=== PATIENT | female | born 1965 | race Caucasian/White ===

== ENCOUNTER 2016-11-21 13:05 | Inpatient (IN) | payer OTHER ==
[2016-11-21] MEDS ORDERED: ONDANSETRON 4 MG TAB.RAPDIS PO ONE (13:45)
[2016-11-21] MEDS ORDERED: NORMAL SALINE 1000 ML 1,000 ML IV ONE (13:45)
--- NOTE | 2016-11-21 13:46 | ER Document Report ---
ED Medical Screen (RME) - General Chief Complaint: Abdominal Pain Stated Complaint: ABDOMINAL PAIN Time Seen by Provider: 11/21/16 13:19 Notes: 51-year-old female with one-week history of right lower quadrant abdominal pain , no appetite with nausea when she tries to eat. There is been a fever since last night. Last bowel movement 1 week ago. I have greeted and performed a rapid initial assessment of this patient. A comprehensive ED assessment and evaluation of the patient, analysis of test results and completion of the medical decision making process will be conducted by additional ED providers. TRAVEL OUTSIDE OF THE [place] IN LAST 30 DAYS: No - Related Data Allergies/Adverse Reactions: acetaminophen [From Darvocet-N 100] Allergy (Verified 11/21/16 13:26) propoxyphene napsylate [From Darvocet-N 100] Allergy (Verified 11/21/16 13:26) ciprofloxacin [From Cipro] Adverse Reaction (Verified 11/21/16 13:38) VOMITING Home Medications: Current Home Medications Glimepiride [Amaryl 4 mg Tablet] 4 mg PO DAILY 11/21/16 [History] Levothyroxine Sodium [Levoxyl] 88 mcg PO DAILY 11/21/16 [History] Rosuvastatin Calcium [Crestor 5 mg Tablet] 5 mg PO DAILY 11/21/16 [History] Sertraline HCl 25 mg PO DAILY 11/21/16 [History] Sitagliptin Phosphate [Januvia] 50 mg PO DAILY 11/21/16 [History] Thyroid 90 mg PO DAILY 11/21/16 [History] Valsartan/Hydrochlorothiazide [Valsartan-Hctz 160-25 mg Tab] 160.25 mg PO DAILY 11/21/16 [History] Past Medical History - Past Medical History Cardiac Medical History: Reports: Hx Hypertension Renal/ Medical History: Denies: Hx Peritoneal Dialysis Physical Exam - Vital signs Vitals: Temp Pulse Resp BP Pulse Ox 100.8 F H 103 H 18 171/89 H 95 11/21/16 13:20 11/21/16 13:20 11/21/16 13:20 11/21/16 13:20 11/21/16 13:20 Course - Vital Signs Vital signs: Temp Pulse Resp BP Pulse Ox 100.8 F H 103 H 18 171/89 H 95 11/21/16 13:20 11/21/16 13:20 11/21/16 13:20 11/21/16 13:20 11/21/16 13:20
[2016-11-21 14:18] LABS: ABSOLUTE EOSINOPHILS # (AUTO) 0.1 10^3/uL (0.0-0.6); ABSOLUTE LYMPHOCYTES (AUTO) 0.9 10^3/uL (0.5-4.7); ABSOLUTE MONOCYTES (AUTO) 0.5 10^3/uL (0.1-1.4); ABSOLUTE NEUT (AUTO) 6.4 10^3/uL (1.7-8.2); BASOPHILS % (AUTO) 0.3 % (0-2); EOSINOPHILS % (AUTO) 1.2 % (0-6); HEMATOCRIT 37.7 % (36.0-47.0); HEMOGLOBIN 12.5 g/dL (12.0-15.5); HGB HCT DIFFERENCE -0.2; LYMPHOCYTES % (AUTO) 11.2 % (13-45); MEAN CORPUSCULAR HGB CONC 33.2 g/dL (32.0-36.0); MEAN CORPUSCULAR VOLUME 78 fl (80-97); MONOCYTES % (AUTO) 6.6 % (3-13); RED BLOOD COUNT 4.81 10^6/uL (3.72-5.28); RED CELL DISTRIBUTION WIDTH 16.7 % (11.5-14.0); SEGMENTED NEUTROPHILS % (AUTO) 80.7 % (42-78)
[2016-11-21 14:50] LABS: ALANINE AMINOTRANSFERASE 36 U/L (9-52); ALBUMIN 4.6 g/dL (3.5-5.0); ALKALINE PHOSPHATASE 91 U/L (38-126); ANION GAP 13 (5-19); ASPARTATE AMINO TRANSFERASE 21 U/L (14-36); BILIRUBIN,DIRECT 0.4 mg/dL (0.0-0.4); BILIRUBIN,TOTAL 0.7 mg/dL (0.2-1.3); BLOOD UREA NITROGEN 15 mg/dL (7-20); CARBON DIOXIDE 28 mmol/L (22-30); CHLORIDE 96 mmol/L (98-107); CREATININE RESULT 0.58 mg/dL (0.52-1.25); GLUCOSE 154 mg/dL (75-110); POTASSIUM 3.1 mmol/L (3.6-5.0); SODIUM 137.1 mmol/L (137-145)
--- NOTE | 2016-11-21 15:18 | ER Document Report ---
ED GI/ - General Mode of Arrival: Ambulatory Information source: Patient TRAVEL OUTSIDE OF THE [place] IN LAST 30 DAYS: No <MARILOU COOK - Last Filed: 11/21/16 20:56> <GREG BOYER - Last Filed: 11/21/16 23:24> - General Chief Complaint: Abdominal Pain Stated Complaint: ABDOMINAL PAIN Time Seen by Provider: 11/21/16 13:19 Notes: Patient is a 51-year-old female who presents to the emergency department today with complaints of abdominal pain. Patient states she "feels full". Patient states she has not had a bowel movement for approximately 1 week. Patient states she had a colonoscopy 8 years ago that was unremarkable. Patient states she has had intermittent vomiting. (MARILOU COOK) - Related Data Allergies/Adverse Reactions: propoxyphene napsylate [From Darvocet-N 100] Allergy (Verified 11/21/16 13:26) ciprofloxacin [From Cipro] Adverse Reaction (Verified 11/21/16 13:38) VOMITING metformin Adverse Reaction (Verified 11/21/16 21:30) N/V rosuvastatin [From Crestor] Adverse Reaction (Verified 11/21/16 21:30) muscle cramps Home Medications: Current Home Medications Glimepiride [Amaryl 4 mg Tablet] 4 mg PO DAILY 11/21/16 [History] Levothyroxine Sodium [Synthroid 0.088 mg Tablet] 88 mcg PO DAILY 11/21/16 [ History] Rosuvastatin Calcium [Crestor 5 mg Tablet] 5 mg PO DAILY 11/21/16 [History] Sertraline HCl [Zoloft] 25 mg PO DAILY 11/21/16 [History] Sitagliptin Phosphate [Januvia 50 mg Tablet] 50 mg PO DAILY 11/21/16 [History] Thyroid 90 mg PO DAILY 11/21/16 [History] Valsartan/Hydrochlorothiazide [Diovan Hct 160-25 mg Tablet] 1 each PO DAILY 12/30 [History] Past Medical History - General Information source: Patient - Social History Smoking Status: Never Smoker Cigarette use (# per day): No Lives with: Family Family History: Reviewed & Not Pertinent Patient has suicidal ideation: No Patient has homicidal ideation: No - Past Medical History Cardiac Medical History: Reports: Hx Hypertension Surgical Hx: Negative <MARILOU COOK - Last Filed: 11/21/16 20:56> Review of Systems - Review of Systems Constitutional: No symptoms reported EENT: No symptoms reported Cardiovascular: No symptoms reported Respiratory: No symptoms reported Gastrointestinal: See HPI, Abdomen distended, Abdominal pain, Vomiting Genitourinary: No symptoms reported Female Genitourinary: No symptoms reported Musculoskeletal: No symptoms reported Skin: No symptoms reported Hematologic/Lymphatic: No symptoms reported Neurological/Psychological: No symptoms reported -: Yes All other systems reviewed and negative <MARILOU COOK - Last Filed: 11/21/16 20:56> Physical Exam <MARILOU COOK - Last Filed: 11/21/16 20:56> <GREG BOYER - Last Filed: 11/21/16 23:24> - Vital signs Vitals: Temp Pulse Resp BP Pulse Ox 100.8 F H 103 H 18 171/89 H 95 11/21/16 13:20 11/21/16 13:20 11/21/16 13:20 11/21/16 13:20 11/21/16 13:20 - Notes Notes: Physical Exam: General: Alert, appears uncomfortable. HEENT: Normocephalic. Atraumatic. PERRL. Extraocular movements intact. Oropharynx clear. Neck: Supple. Non-tender. Respiratory: No respiratory distress. Clear and equal breath sounds bilaterally. Cardiovascular: Regular rate and rhythm. Abdominal: Morbidly obese. Mild diffuse tenderness with palpation. Distended. Irreducible ventral hernia. Back: Non-tender. No deformity or step off. Extremities: Moves all four extremities. Upper extremities: Normal inspection. Normal ROM. Lower extremities: Normal inspection. No edema. Normal ROM. Neurological: Normal cognition. AAOx4. Normal speech. Psychological: Normal affect. Normal Mood. Skin: Warm. Dry. Normal color. (MARILOU COOK) Course - Laboratory Result Diagrams: 11/21/16 14:00 11/21/16 14:00 - Consults Surgery Time consulted: 18:47 - Dr. Rodriguez will admit <MARILOU COOK - Last Filed: 11/21/16 20:56> - Laboratory Result Diagrams: 11/21/16 14:00 11/21/16 14:00 <GREG BOYER - Last Filed: 11/21/16 23:24> - Re-evaluation Re-evalutation: 11/21/16 Patient is a 51-year-old female who presents with distention, abdominal discomfort. Patient has a ventral hernia that is nontender. Patient has not had bowel movements or pass gas. CT was obtained showing a bowel obstruction likely related to her hernia. Patient was seen by surgery. Patient is now passing gas. Recommend that the patient be admitted to the medical service for bowel rest and fluid hydration. Patient also noted to have a fever 100.8 which could be due to her urine. Patient is agreeable to this plan. Stable at time of admission. (GREG BOYER) - Vital Signs Vital signs: Temp Pulse Resp BP Pulse Ox 99.1 F 103 H 19 134/77 H 92 11/21/16 21:10 11/21/16 13:20 11/21/16 21:02 11/21/16 21:02 11/21/16 21:02 - Laboratory Laboratory results interpreted by me: 11/21/16 11/21/16 11/21/16 14:00 14:00 14:00 MCV 78 L MCH 26.0 L RDW 16.7 H Seg Neutrophils % 80.7 H Lymphocytes % 11.2 L Potassium 3.1 L Chloride 96 L Glucose 154 H Lipase 363.9 H Urine Protein Urine Ketones Ur Leukocyte Esterase 11/21/16 17:55 MCV MCH RDW Seg Neutrophils % Lymphocytes % Potassium Chloride Glucose Lipase Urine Protein 100 H Urine Ketones TRACE H Ur Leukocyte Esterase SMALL H Discharge <MARILOU COOK - Last Filed: 11/21/16 20:56> - Discharge Admitting Provider: [facility] Unit Admitted: Surgical Floor <GREG BOYER - Last Filed: 11/21/16 23:24> - Discharge Clinical Impression: Ventral hernia with bowel obstruction Abdominal pain Qualifiers: Abdominal location: right upper quadrant Qualified Code(s): R10.11 - Right upper quadrant pain Bowel obstruction Qualifiers: Intestinal obstruction type: other intestinal obstruction Qualified Code(s): K56.69 - Other intestinal obstruction Condition: Stable Disposition: ADMITTED INPATIENT Scribe Attestation: 11/21/16 23:24 I personally performed the services described in the documentation, reviewed and edited the documentation which was dictated to the scribe in my presence, and it accurately records my words and actions. (GREG BOYER) Scribe Documentation - Scribe Written by Scribe:: Joby Wyatt, 11/21/2016 2100 acting as scribe for :: Joni <MARILOU COOK - Last Filed: 11/21/16 20:56>
--- NOTE | 2016-11-21 17:53 | RADIOLOGY REPORT (SQ) ---
EXAM DESCRIPTION: CT ABD/PELVIS WITH IV ORAL COMPLETED DATE/TIME: 11/21/2016 5:26 pm REASON FOR STUDY: RLQ abd pain, fever, no appetite COMPARISON: None. TECHNIQUE: CT scan of the abdomen and pelvis performed using helical scanning technique with dynamic intravenous contrast injection. A small amount of oral contrast. Images reviewed with lung, soft ti ssue, and bone windows. Reconstructed coronal and sagittal MPR images reviewed. Delayed images for ev aluation of the urinary system also acquired. All images stored on PACS. All CT scanners at this facility use dose modulation, iterative reconstruction, and/or weight based d osing when appropriate to reduce radiation dose to as low as reasonably achievable (ALARA). [facility]: Dose Right [facility]: CareDose [facility]: Dose Right [facility]: Teradose 4D [facility]: Symwave CONTRAST TYPE AND DOSE: contrast/concentration: Isovue 370.00 mg/ml; Total Contrast Delivered: 100.0 ml; Total Saline Delivered: 52.1 ml RENAL FUNCTION: Creatinine 0.6 BUN 15 RADIATION DOSE: Up-to-date CT equipment and radiation dose reduction techniques were employed. CTDIv ol: 21.1 - 37.5 mGy. DLP: 3600 mGy-cm.. LIMITATIONS: None. FINDINGS: LOWER CHEST: No significant findings. No nodules or infiltrates. LIVER: Normal size. No masses. No dilated ducts. SPLEEN: Normal size. No focal lesions. PANCREAS: No masses. No significant calcifications. No adjacent inflammation or peripancreatic fluid collections. Pancreatic duct not dilated. GALLBLADDER: No identified stones by CT criteria. No inflammatory changes to suggest cholecystitis. ADRENAL GLANDS: No significant masses or asymmetry. RIGHT KIDNEY AND URETER: No solid masses. No significant calcifications. No hydronephrosis or hyd roureter. LEFT KIDNEY AND URETER: No solid masses. No significant calcifications. No hydronephrosis or hydr oureter. AORTA AND VESSELS: No aneurysm. No dissection. Renal arteries, SMA, celiac without stenosis. RETROPERITONEUM: No retroperitoneal adenopathy, hemorrhage or masses. BOWEL AND PERITONEAL CAVITY: There is a very distended fluid and air-filled loop of bowel on the righ t. There is a 55 mm ventral hernia to the right of midline in the right lower quadrant containing a loop of bowel. The small bowel is not dilated. The left colon is not dilated. APPENDIX: Not identified. PELVIS: The urinary bladder is normal. Uterus is normal for age. The right ovary measures 4 cm and is mildly prominent. ABDOMINAL WALL: There is a 55 mm right lower quadrant ventral hernia contains a loop of bowel and [place] arently resulting in bowel obstruction. BONES: No significant or acute findings. OTHER: No other significant finding. IMPRESSION: 1. Ventral hernia containing bowel resulting in bowel obstruction. 2. The right ovary is somewhat prominent. Consider pelvic ultrasound for further evaluation when cl inically reasonable. COMMENT: Findings were discussed with Dr. Rocha at 1747 hours on this date. TECHNICAL DOCUMENTATION: JOB ID: [id number] Quality ID # [id number]: Final reports with documentation of one or more dose reduction techniques (e.g., Au tomated exposure control, adjustment of the mA and/or kV according to patient size, use of iterative reconstruction technique) 2010 [employer]- All Rights Reserved
[2016-11-21 18:36] LABS: APPEARANCE,URINE SLIGHTLY-CLOUDY; BILIRUBIN,URINE NEGATIVE (NEGATIVE); GLUCOSE, URINE NEGATIVE (NEGATIVE); KETONES,URINE TRACE mg/dL (NEGATIVE); LEUKOCYTE ESTERASE,URINE SMALL (NEGATIVE); NITRITE,URINE NEGATIVE (NEGATIVE); PROTEIN,URINE 100 mg/dL (NEGATIVE); URINE SPECIFIC GRAVITY 1.046; UROBILINOGEN,URINE NEGATIVE mg/dL (<2.0)
[2016-11-21] MEDS ORDERED: NORMAL SALINE 1000 ML 1,000 ML IV PRN ×2 (20:18→21:37)
--- NOTE | 2016-11-21 20:34 | RADIOLOGY REPORT (SQ) ---
EXAM DESCRIPTION: CHEST SINGLE VIEW COMPLETED DATE/TIME: 11/21/2016 8:26 pm REASON FOR STUDY: fever COMPARISON: 12/05/2011 EXAM PARAMETERS: NUMBER OF VIEWS: One view. TECHNIQUE: Single frontal radiographic view of the chest acquired. RADIATION DOSE: NA LIMITATIONS: None. FINDINGS: LUNGS AND PLEURA: No opacities, masses or pneumothorax. No pleural effusion. MEDIASTINUM AND HILAR STRUCTURES: No masses. Contour normal. HEART AND VASCULAR STRUCTURES: Heart normal in size. Normal vasculature. BONES: No acute findings. HARDWARE: None in the chest. OTHER: No other significant finding. IMPRESSION: NO ACUTE RADIOGRAPHIC FINDING IN THE CHEST. TECHNICAL DOCUMENTATION: JOB ID: [id number]
[2016-11-21] MEDS ORDERED: POTASSI CL 20 MEQ/50 ML RIDER 20 MEQ/50 ML RTUPB IV SCH (21:00)
[2016-11-21] MEDS ORDERED: DEXTROSE 40% GEL 15 GM TUBE PO PRN ×2 (21:27)
[2016-11-21] MEDS ORDERED: DEXTROSE 50%-WATER 25 GM/50 ML DISP.SYRIN IV PRN ×2 (21:27)
[2016-11-21] MEDS ORDERED: INSULIN LISPRO 100 UNIT/ML 3 ML VIAL SUBCUT PRN (21:27)
[2016-11-21] MEDS ORDERED: GLUCAGON,HUMAN RECOMB 1 MG INJ IM PRN (21:27)
[2016-11-21] MEDS ORDERED: PROMETHAZINE HCL 25 MG TABLET PO PRN (21:36)
--- NOTE | 2016-11-21 21:49 | PDOC H&P ---
History of Present Illness Admission Date/PCP: 11/21/16 19:14 Juani Ashley Patient complains of: Right-sided abdominal pain, nausea vomiting, low-grade fever History of Present Illness: ELVIS SEGURA is a 51 year old morbidly obese female with underlying hypertension, type 2 diabetes mellitus, history of hyperlipidemia, but currently on no medication for same,, who presents to the emergency room for evaluation of above complaints. Patient has been discussed with emergency room physician who evaluated the patient. Prior to my being called, the patient was seen by general surgery, who was uncomfortable with patient going home but also did not feel the patient had an acute surgical issue. She describes a one-week history of bloating, along with a 1 day history of mild intermittent somewhat cramping right-sided abdominal pain. Nausea and vomiting 2. No chest pain or dysuria. States she not uncommonly has the bloating and pain with her irregular menses. 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 Temperature was noted to be approximately 100.6 in the emergency room. She was noted to have a long-standing lower right sided ventral hernia, which was reducible and nontender. She has had no bowel movement for the past week, which is unusual for her. However, since coming to the emergency room, she is now passing gas and states she feels better.. Dictation via voice recognition software. Laboratory results are listed in [employer] and are reviewed. X-ray summary results are listed below, with full report(s) reviewed. . Social history/personal habits: . 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 No use of alcohol tobacco or illicit drugs. Allergies/adverse reactions are listed in [employer] and are reviewed. Home medications initially autopopulated into [employer] may not accurately reflect patient's true medications, dosages, and/or frequencies. i&c technician to reconcile medications. Unfortunately, patient not certain of all medications/dosages/frequencies. REVIEW OF SYSTEMS: Constitutional: See history and present illness. Eyes: No vision complaints. ENT: No swallowing problems or complaints. Denies hearing loss. Pulmonary: No current complaints. Cardiovascular: No current complaints, including chest pain. Gastrointestinal: See history and present illness. Skin: No current complaints, including rashes. Hematologic: Denies easy bruising. Neurologic: No current complaints, including numbness or tingling. Musculoskeletal: No current or chronic joint complaints, such as arthritis. Psychiatric: Mild anxiety and depression; denies suicidal or homicidal ideation. Endocrine: No current complaints, including polyuria. Genitourinary: No current complaints, including dysuria. PHYSICAL EXAMINATION: 5 feet 6 inches tall. 168 kg. BMI 59.8 kg/m. Blood pressure 140/80. Pulse 99 and regular. 94% saturation on room air. Respirations are 21 and unlabored. Temperature 99.1; 100.8 recorded earlier. Morbidly obese otherwise well-developed female appearing approximately her stated age. Pleasant awake alert and cooperative. No obvious distress other than somewhat anxious. Emergency room nurse critical systems technician Nelson is present. Skin is warm and dry. No grossly obvious evidence of rash in areas of skin examined. No subcutaneous nodules palpated. ENT: Hearing grossly normal to normal conversation. Tongue midline on protrusion pink and slightly tacky. Eyes: No scleral icterus. Pupils equal and reactive to light at 4 mm. [place] conjunctivae. Neck is supple and nontender to gentle active range of motion and palpation. Midline trachea. No palpable thyroid nodule mass enlargement or tenderness. Lymphatic: No palpable cervical or clavicular nodes. Neck and lymphatic exams limited by patient body habitus. Psychiatric: Reasonable insight into acute and chronic medical issues. Oriented to time location and why here. Lungs: Auscultation reveals clear and equal breath sounds bilaterally. No use of accessory respiratory muscles. Cardiovascular: Heart regular rate and rhythm, without gallop murmur or rub. No carotid or abdominal aortic bruits. No ankle or pedal edema. Palpable dorsalis pedis pulses. Abdomen:soft quite obese with positive bowel sounds. Scant right sided abdominal discomfort, a bit more in the upper portion of the right side of the abdomen. Certainly no evidence of guarding or peritoneal signs. Unable to adequately evaluate abdomen for masses or organomegaly due to body habitus. She had a small nontender easily reducible lower right sided ventral hernia, which however quickly recurs when compression removed. No evidence of strangulation or incarceration per se. Extremities: Feet are warm and dry. No calf tenderness to compression. No grossly obvious visual evidence of calf swelling. Gentle manipulation of lower extremities fails to reveal any obvious evidence of injury or instability to knees hips or ankles. Neurologic: Moves upper extremities grossly normally. Patellar reflexes absent. Absent Babinski. Light touch is intact at feet. Dorsiflexion and plantarflexion of feet 5 / 5 and symmetric. Past Medical History Cardiac Medical History: Reports: Hyperlipidema - History of; recent lab results unremarkable, Hypertension Denies: Congestive Heart Failure, Coronary Artery Disease, DVT, Myocardial Infarction, Pulmonary Embolism Pulmonary Medical History: Denies: Asthma, Chronic Obstructive Pulmonary Disease (COPD), Sleep Apnea EENT Medical History: Denies: Eyes, Ears, Throat Neurological Medical History: Denies: Hemorrhagic CVA, Ischemic CVA, Seizures Endocrine Medical History: Reports: Diabetes Mellitus Type 2, Hypothyroidism - Jose E's thyroiditis Denies: Diabetes Mellitus Type 1, Hyperthyroidism Renal/ Medical History: Reports: Other - Rare urinary tract infection GI Medical History: Reports: Other - Long-standing right lower abdominal ventral hernia. Denies: Cirrhosis, Gastroesophageal Reflux Disease, Hepatitis, Peptic Ulcer Disease Musculoskeltal Medical History: Denies: Arthritis Skin Medical History: Reports: None Psychiatric Medical History: Reports: Depression, General Anxiety Disorder Denies: Alcohol Dependency, Substance Abuse, Tobacco Dependency Infectious Medical History: Denies: Hepatitis B, Hepatitis C Past Surgical History Past Surgical History: Reports: None Social History Information Source: Patient, Emergency Med Personnel, [facility] Records Lives with: Spouse/Significant other Smoking Status: Never Smoker Frequency of Alcohol Use: None Hx Recreational Drug Use: No Drugs: None - Advance Directive Resuscitation Status: Full Code Surrogate healthcare decision maker:: Family History Family History: Reviewed & Not Pertinent Parental Family History Reviewed: Yes - Both parents . Mother was diabetic. Uncertain father's health Children Family History Reviewed: Yes - Gallbladder issues Sibling(s) Family History Reviewed.: Yes - Patient is adopted uncertain sibling history Medication/Allergy Home Medications: Glimepiride [Amaryl 4 mg Tablet] 4 mg PO DAILY 11/21/16 Levothyroxine Sodium [Synthroid 0.088 mg Tablet] 88 mcg PO DAILY 11/21/16 Rosuvastatin Calcium [Crestor 5 mg Tablet] 5 mg PO DAILY 11/21/16 Sertraline HCl [Zoloft] 25 mg PO DAILY 11/21/16 Sitagliptin Phosphate [Januvia 50 mg Tablet] 50 mg PO DAILY 11/21/16 Thyroid 90 mg PO DAILY 11/21/16 Valsartan/Hydrochlorothiazide [Diovan Hct 160-25 mg Tablet] 1 each PO DAILY 12/30 Allergies/Adverse Reactions: propoxyphene napsylate [From Darvocet-N 100] Allergy (Verified 11/21/16 13:26) ciprofloxacin [From Cipro] Adverse Reaction (Verified 11/21/16 13:38) VOMITING metformin Adverse Reaction (Verified 11/21/16 21:30) N/V rosuvastatin [From Crestor] Adverse Reaction (Verified 11/21/16 21:30) muscle cramps Physical Exam Vital Signs: Temp Pulse Resp BP Pulse Ox 99.1 F 103 H 19 134/77 H 92 11/21/16 21:10 11/21/16 13:20 11/21/16 21:02 11/21/16 21:02 11/21/16 21:02 Results Impressions: Chest X-Ray 11/21/16 00:00 IMPRESSION: NO ACUTE RADIOGRAPHIC FINDING IN THE CHEST. Abdomen/Pelvis CT 11/21/16 13:44 IMPRESSION: 1. Ventral hernia containing bowel resulting in bowel obstruction. 2. The right ovary is somewhat prominent. Consider pelvic ultrasound for further evaluation when clinically reasonable. Assessment & Plan - Diagnosis (1) Abdominal bloating Is this a current diagnosis for this admission?: Yes (2) Abnormal CT scan, pelvis Is this a current diagnosis for this admission?: YesPlan: Pelvic ultrasound to evaluate her right ovary. Discussed with day hospitalist team. (3) Abnormal urinalysis Is this a current diagnosis for this admission?: YesPlan: Suspect UTI as a source of her fever. Blood and urine cultures. Rocephin. I have strongly encouraged patient to be careful out of bed without notifying staff, to avoid a fall with injury. Knee high SCDs for DVT prophylaxis, along with subcutaneous heparin. Impression and plans were discussed with patient, who concurs. Time spent in evaluation and management of patient: 74 minutes. (4) Fever Qualifiers: Fever type: due to other condition Qualified Code(s): R50.81 - Fever presenting with conditions classified elsewhere Is this a current diagnosis for this admission?: Yes (5) Hypokalemia Is this a current diagnosis for this admission?: YesPlan: Potassium replacement, with follow-up chemistry. (6) N&V (nausea and vomiting) Qualifiers: Vomiting type: unspecified Vomiting Intractability: non-intractable Qualified Code(s): R11.2 - Nausea with vomiting, unspecified Is this a current diagnosis for this admission?: Yes (7) Right sided abdominal pain Is this a current diagnosis for this admission?: Yes (8) Ventral hernia Qualifiers: Obstruction and gangrene presence: without obstruction or gangrene Qualified Code(s): K43.9 - Ventral hernia without obstruction or gangrene Is this a current diagnosis for this admission?: YesPlan: Surgery consult. (9) Diabetes mellitus type 2 in obese Is this a current diagnosis for this admission?: YesPlan: Accu-Cheks with appropriate sliding scale coverage. Resume home medications as appropriate once these have been determined and reviewed. (10) HTN (hypertension) Qualifiers: Hypertension type: essential hypertension Qualified Code(s): I10 - Essential (primary) hypertension Is this a current diagnosis for this admission?: YesPlan: Resume home medications as appropriate once these have been determined and reviewed. (11) Morbid obesity with BMI of 50.0-59.9, adult Is this a current diagnosis for this admission?: YesPlan: Dietary consult.
[2016-11-21] MEDS ORDERED: CEFTRIAXONE 1 GM/D5W RTU 1 GM/50 ML RTUPB IV SCH (22:00)
[2016-11-21 22:01] LABS: ADD ON TESTING BLD IN LAB ACKNOWLEDGE
[2016-11-21 22:12] LABS: LIPASE 363.9 U/L (23-300); MAGNESIUM 2.1 mg/dL (1.6-2.3)
[2016-11-21] MEDS: HEPARIN SOD (PORCINE) 5,000 UNIT/ML 1 ML SYRINGE SUBCUT SCH (23:13)
[2016-11-21] MEDS: ACETAMINOPHEN 325 MG TABLET PO PRN (23:56)
[2016-11-22 00:33] LABS: ANION GAP 13 (5-19); BLOOD UREA NITROGEN 14 mg/dL (7-20); CALCIUM 9.5 mg/dL (8.4-10.2); CARBON DIOXIDE 28 mmol/L (22-30); CHLORIDE 95 mmol/L (98-107); CREATININE RESULT 0.54 mg/dL (0.52-1.25); GLUCOSE 191 mg/dL (75-110)
[2016-11-22] MEDS ORDERED: POTASSI CL 20 MEQ/50 ML RIDER 20 MEQ/50 ML RTUPB IV SCH (02:30)
[2016-11-22] MEDS: HEPARIN SOD (PORCINE) 5,000 UNIT/ML 1 ML SYRINGE SUBCUT SCH ×2 (05:13→17:14)
[2016-11-22] MEDS: ACETAMINOPHEN 325 MG TABLET PO PRN (05:55)
[2016-11-22] MEDS: POTASSI CL 20 MEQ/50 ML RIDER 20 MEQ/50 ML RTUPB IV SCH ×2 (05:55→08:03)
[2016-11-22 07:12] LABS: ABSOLUTE EOSINOPHILS # (AUTO) 0.1 10^3/uL (0.0-0.6); ABSOLUTE LYMPHOCYTES (AUTO) 0.8 10^3/uL (0.5-4.7); ABSOLUTE MONOCYTES (AUTO) 0.6 10^3/uL (0.1-1.4); ABSOLUTE NEUT (AUTO) 6.3 10^3/uL (1.7-8.2); BASOPHILS % (AUTO) 0.3 % (0-2); EOSINOPHILS % (AUTO) 1.3 % (0-6); HEMOGLOBIN 11.1 g/dL (12.0-15.5); HGB HCT DIFFERENCE -0.7; LYMPHOCYTES % (AUTO) 9.8 % (13-45); MEAN CORPUSCULAR HEMOGLOBIN 26.1 pg (27.0-33.4); MEAN CORPUSCULAR HGB CONC 32.7 g/dL (32.0-36.0); MEAN CORPUSCULAR VOLUME 80 fl (80-97); MONOCYTES % (AUTO) 7.7 % (3-13); RED BLOOD COUNT 4.26 10^6/uL (3.72-5.28); RED CELL DISTRIBUTION WIDTH 16.2 % (11.5-14.0); SEGMENTED NEUTROPHILS % (AUTO) 80.9 % (42-78); WHITE BLOOD COUNT 7.8 10^3/uL (4.0-10.5)
[2016-11-22 07:33] LABS: ANION GAP 11 (5-19); BLOOD UREA NITROGEN 13 mg/dL (7-20); CALCIUM 9.2 mg/dL (8.4-10.2); CARBON DIOXIDE 29 mmol/L (22-30); CHLORIDE 97 mmol/L (98-107); CREATININE RESULT 0.54 mg/dL (0.52-1.25); GLUCOSE 162 mg/dL (75-110); POTASSIUM 3.2 mmol/L (3.6-5.0); SODIUM 136.5 mmol/L (137-145)
--- NOTE | 2016-11-22 09:19 | PDOC PROGRESS REPORT ---
Subjective Progress Note for:: 11/22/16 Subjective:: Still feels bloated. Passing gas. Physical Exam Vital Signs: Temp Pulse Resp BP Pulse Ox 101.4 F H 99 19 147/83 H 99 11/22/16 05:09 11/22/16 07:00 11/21/16 21:02 11/22/16 05:09 11/22/16 05:09 Intake & Output 11/21/16 11/22/16 11/23/16 06:59 06:59 06:59 Intake Total 25 Balance 25 Weight 168 kg General appearance: PRESENT: no acute distress, cooperative Respiratory exam: PRESENT: clear to auscultation jose Cardiovascular exam: PRESENT: RRR GI/Abdominal exam: PRESENT: other - Obese, difficult to tell distention but does appear to be moderately distended. Erythema at the umbilicus with a orange sized nonreducible mass with mild tenderness. No peritoneal signs. No induration. Results Laboratory Results: 11/22/16 06:39 11/22/16 06:39 11/21/16 11/22/16 11/22/16 23:37 06:39 06:39 WBC 7.8 RBC 4.26 Hgb 11.1 L Hct 34.0 L MCV 80 MCH 26.1 L MCHC 32.7 RDW 16.2 H Plt Count 204 Seg Neutrophils % 80.9 H Lymphocytes % 9.8 L Monocytes % 7.7 Eosinophils % 1.3 Basophils % 0.3 Absolute Neutrophils 6.3 Absolute Lymphocytes 0.8 Absolute Monocytes 0.6 Absolute Eosinophils 0.1 Absolute Basophils 0.0 Sodium 136.0 L 136.5 L Potassium 3.0 L* 3.2 L Chloride 95 L 97 L Carbon Dioxide 28 29 Anion Gap 13 11 BUN 14 13 Creatinine 0.54 0.54 Est GFR ( Amer) > 60 > 60 Est GFR (Non-Af Amer) > 60 > 60 Glucose 191 H 162 H Calcium 9.5 9.2 Impressions: Chest X-Ray 11/21/16 00:00 IMPRESSION: NO ACUTE RADIOGRAPHIC FINDING IN THE CHEST. Abdomen/Pelvis CT 11/21/16 13:44 IMPRESSION: 1. Ventral hernia containing bowel resulting in bowel obstruction. 2. The right ovary is somewhat prominent. Consider pelvic ultrasound for further evaluation when clinically reasonable. Assessment & Plan - Diagnosis (1) Umbilical hernia with obstruction Is this a current diagnosis for this admission?: YesPlan: Chronically incarcerated with partial small bowel obstruction that appears low grade. Patient would benefit from umbilical hernia repair. I have highly recommended this procedure to the patient. With her erythema will need to try to avoid mesh due to risk for mesh infection in this setting. I have discussed with the patient the risk and benefits of the procedure. However patient is reluctant to undergo the procedure. She will think about it and let me know.
[2016-11-22] MEDS ORDERED: MINERAL OIL ENEMA 133 ML PR PRN (09:28)
[2016-11-22] MEDS ORDERED: MINERAL OIL ENEMA 133 ML PR ONE (09:28)
[2016-11-22] MEDS ORDERED: ONDANSETRON HCL INJ/PF 4 MG/2 ML SDV IV PRN (09:29)
--- NOTE | 2016-11-22 09:57 | PROGRESS NOTE E ---
Progress Note NAME: ELVIS SEGURA : 1965 AGE: 51Y DATE: 11/22/2016 ROOM: 425 SUBJECTIVE: The patient is lying in bed. When I entered the room the patient was quite tearful, stating that her IV was burning. The patient also stated that she was distressed at the thought of having to have surgery. I explained to the patient the need for electrolyte replacement and IV fluids and the rationale behind surgery. However, the patient is quite anxious. The patient denies any other symptoms, including vomiting. No shortness of breath, dizziness, chest pain. No fever or chills. Although the patient's temp has been elevated, she has not actually had a febrile state. The patient does not voice any other concerns at this time. REVIEW OF SYSTEMS: The rest of the review of systems is negative. MEDICATIONS: Medications have been reviewed. OBJECTIVE: GENERAL: The patient is a 51-year-old female who is awake, alert, and oriented to person, place, time, and situation. She is verbal, conversational, does not appear to be in any physical distress. VITAL SIGNS: As follows: Temperature is 101.4, pulse 94, respirations 16, blood pressure is 147/83, oxygen saturation is 99% on room air. SKIN: Warm and dry. No rash, not diaphoretic. HEENT: Pupils equal, round, and reactive to light and accommodation. Conjunctiva is pink. There is no JVP. CARDIOVASCULAR: Heart is regular. Is no murmur or rub. CHEST: Clear, symmetrical, unlabored. ABDOMEN: Obese, difficult to assess given body habitus. EXTREMITIES: No clubbing, cyanosis, edema. PSYCHIATRIC: The patient is quite anxious. DIAGNOSTICS: Lab values are as follows. Hematology obtained on 11/22/2016: WBCs are 7.8, hemoglobin is 11.1, hematocrit is 34, platelet count is 204,000. Chemistry obtained on 11/22/2016: Sodium is 136, potassium 3.2, chloride is 97, carbon dioxide 29, BUN 13, creatinine is 0.54, glucose 160, calcium is 9.2. Microbiology: Blood cultures obtained on 11/22/2016 reveal no growth. IMPRESSION AND PLAN: 1. VENTRAL WALL HERNIA WITH POSSIBLE OBSTRUCTIVE PROCESS. The patient has been seen by Dr. Lara and surgery has been recommended. The patient is going to contemplate this and has been encouraged to proceed with this. Will continue supportive care and follow. 2. URINARY TRACT INFECTION. Urine culture has been sent. Will continue antibiotic coverage and follow. 3. SIRS SECONDARY TO #1 AND #2. Will cover with Unasyn for now. If the patient maintains a temp, will broaden spectrum. 4. HYPOKALEMIA. This has been repleted. The patient is now working on her third K-rider; however, she may not be able to tolerate this and may need to be further diluted. Repeat chemistries this afternoon and follow. 5. MORBID OBESITY WITH A BMI OF 59. Will encourage weight reduction. 6. DIABETES MELLITUS, TYPE 2. Will continue sliding-scale coverage. Hold oral medication for now. 7. HYPOTHYROIDISM. Will continue the patient's hormone replacement. 8. HYPERTENSION. Blood pressures have been slightly elevated but currently holding her thiazide diuretic. Will monitor and address p.r.n. 9. DEPRESSION. Will continue the patient's home medications once able to take p.o. 10. HYPERLIPIDEMIA. Will continue statin once the patient is able to take p.o. 11. CONSTIPATION, MOST LIKELY A BYPRODUCT OF #1. Will provide enemas and further recommendations as per Surgery. DISPOSITION: THE PATIENT IS A FULL CODE. Pending the patient's symptomatology and diagnostic findings, will re-evaluate in the a.m. Time spent on this followup, including assessment/plan, physical examination, patient education, and review of records, is 35 minutes. DICTATING PHYSICIAN: NELLIE HAMEED NP [id number] PHY#: [id number] ID: [id number] JOB#: [id number] ACCT: [id number] cc: >
[2016-11-22] MEDS: DOCUSATE SODIUM 100 MG CAPSULE PO SCH ×2 (09:58→17:14)
[2016-11-22] MEDS: AMPICILLIN SODIUM/SULBACTAM NA 3 GM in NORMAL SALINE 100 ML IV SCH ×2 (12:00→17:14)
[2016-11-22] MEDS ORDERED: ACETAMINOPHEN 325 MG TABLET PO PRN (14:27)
--- NOTE | 2016-11-22 14:36 | RADIOLOGY REPORT (SQ) ---
EXAM DESCRIPTION: ABDOMEN 2 VIEWS COMPLETED DATE/TIME: 11/22/2016 2:05 pm REASON FOR STUDY: HERNIA COMPARISON: Abdominal CT scan dated 11/21/2016 NUMBER OF VIEWS: Two views. TECHNIQUE: Supine and erect/decubitus radiographic images of the abdomen acquired. LIMITATIONS: None. FINDINGS: FREE AIR: None. No abnormal gas collections. LUNG BASES: Clear. BOWEL GAS PATTERN: There is gaseous distension of bowel loops with a differential air-fluid level on the erect film consistent with a bowel obstruction which was identified on the previous CT scan. CALCIFICATIONS: No suspicious calcifications. SOFT TISSUES: No gross mass or suggestion of organomegaly. HARDWARE: None in the abdomen. BONES: No acute fracture. No worrisome bone lesions. OTHER: No other significant finding. IMPRESSION: Findings consistent with a bowel obstruction which correlates with the findings on the p revious CT scan TECHNICAL DOCUMENTATION: JOB ID: [id number] [facility] [employer]- All Rights Reserved
[2016-11-22] MEDS ORDERED: DEXTROSE 50%-WATER 25 GM/50 ML DISP.SYRIN IV PRN ×2 (14:55)
[2016-11-22] MEDS ORDERED: DEXTROSE 40% GEL 15 GM TUBE PO PRN ×2 (14:55)
[2016-11-22] MEDS ORDERED: GLUCAGON,HUMAN RECOMB 1 MG INJ SUBCUT PRN (14:55)
--- NOTE | 2016-11-22 14:59 | PDOC PROGRESS REPORT ---
Subjective Progress Note for:: 11/22/16 Subjective:: Better with bowel movements but still bloated in the upper abdomen. Physical Exam Vital Signs: Temp Pulse Resp BP Pulse Ox 100.6 F H 92 19 148/80 H 97 11/22/16 11:19 11/22/16 11:19 11/22/16 11:19 11/22/16 11:19 11/22/16 11:19 Intake & Output 11/21/16 11/22/16 11/23/16 06:59 06:59 06:59 Intake Total 180 Balance 180 Weight 168 kg General appearance: PRESENT: no acute distress GI/Abdominal exam: PRESENT: other - soft but distended with minimal tenderness. Results Impressions: Chest X-Ray 11/21/16 00:00 IMPRESSION: NO ACUTE RADIOGRAPHIC FINDING IN THE CHEST. Abdomen/Pelvis CT 11/21/16 13:44 IMPRESSION: 1. Ventral hernia containing bowel resulting in bowel obstruction. 2. The right ovary is somewhat prominent. Consider pelvic ultrasound for further evaluation when clinically reasonable. Abdomen X-Ray 11/22/16 00:00 IMPRESSION: Findings consistent with a bowel obstruction which correlates with the findings on the previous CT scan Assessment & Plan - Diagnosis (1) Umbilical hernia with obstruction Is this a current diagnosis for this admission?: YesPlan: Chronically incarcerated with partial small bowel obstruction. still refusing surgery. Patient feels better and has had a bowel movement however prior to allowing her to eat I strongly feel that that she needs a small bowel study. Her KUB still looks abnormal with dilated loops of the small bowel. Furthermore she still feels distended.
--- NOTE | 2016-11-22 15:25 | PDOC PROGRESS REPORT ---
Subjective Progress Note for:: 11/22/16 Physical Exam Vital Signs: Temp Pulse Resp BP Pulse Ox 100.6 F H 92 19 148/80 H 97 11/22/16 11:19 11/22/16 11:19 11/22/16 11:19 11/22/16 11:19 11/22/16 11:19 Intake & Output 11/21/16 11/22/16 11/23/16 06:59 06:59 06:59 Intake Total 180 Balance 180 Weight 168 kg Results Impressions: Chest X-Ray 11/21/16 00:00 IMPRESSION: NO ACUTE RADIOGRAPHIC FINDING IN THE CHEST. Abdomen/Pelvis CT 11/21/16 13:44 IMPRESSION: 1. Ventral hernia containing bowel resulting in bowel obstruction. 2. The right ovary is somewhat prominent. Consider pelvic ultrasound for further evaluation when clinically reasonable. Abdomen X-Ray 11/22/16 00:00 IMPRESSION: Findings consistent with a bowel obstruction which correlates with the findings on the previous CT scan Assessment & Plan - Diagnosis (1) Umbilical hernia with obstruction Is this a current diagnosis for this admission?: YesPlan: Discussed this case with the radiologist who feels strongly that the dilated loop of bowel seen on KUB is the proximal colon and in reviewing the CT scan there is evidence of a colon obstruction due to the hernia. The radiologist feel strongly that a small bowel follow series with not help in shedding light to the current process. I reviewed these studies with the radiologist. I have again recommended to the patient strongly for an urgent operation before she has intestinal compromise. Patient is still adamant about not having surgery. She is alert and appropriate and I feel that she is competent to make her decisions albeit the wrong one.
[2016-11-22 16:06] VITALS: BP 146/73
--- NOTE | 2016-11-22 17:27 | DISCHARGE SUMMARY E ---
Discharge Summary NAME: ELVIS SEGURA : 1965 AGE: 51Y ADMITTED: 11/22/2016 DISCHARGED: 11/22/2016 AGAINST MEDICAL ADVICE SUMMARY CODE STATUS: Code status at the time patient left is FULL CODE. CONSULTING SURGICALIST: SONA CEBALLOS M.D. DIAGNOSES: Working diagnoses at the time the patient left AMA includes: 1. Ventral wall hernia with obstructive process. 2. Urinary tract infection. 3. SIRS secondary to #1 and #2. 4. Hypokalemia. 5. Morbid obesity with a BMI of 59. 6. Diabetes mellitus type 2. 7. Hypothyroidism. 8. Hypertension. 9. Depression. 10. Hyperlipidemia. 11. Constipation, most likely a byproduct of #1. HISTORY OF PRESENT ILLNESS/HOSPITAL COURSE: The patient is a 51-year-old female with a past medical history of morbid obesity and ventral wall hernia. The patient presented to the emergency department with a chief complaint of abdominal pain. The patient was found to have a ventral wall hernia with evidence of an obstructive process and the patient was seen and evaluated by Surgery. The patient was admitted for hydration as well as electrolyte repletion and pain control. The patient was also started on antibiotic coverage given our findings consistent with UTI and the patient was seen by the surgicalist for followup. The patient refused her surgery and stated that she was only interested in holistic healing and felt that her care would be better cared for in a holistic approach, and did not want operative intervention or any other further medical intervention. The patient has left AMA and is fully aware of the lethal repercussions associated with this decision. The patient has had discussion by both the nursing, surgical, and medical providers. TIME: Time spent on this AMA summary was 10 minutes. DICTATING PHYSICIAN: NELLIE HAMEED NP [id number] PHY#: [id number] ID: [id number] JOB#: [id number] ACCT: [id number] cc:KRYSTINA JAMESON M.D. >
== END 2016-11-22 17:46 | disposition left against medical advice (07) | DRG 394 ==
LOC: ER 13:05 → UNDOADMIN 19:14 → EH 19:14 → INTOOBSV 21:30 → EH 22:07 → 4S 22:07 → OBSVTOIN 11-22 09:15
PROVIDERS: ADMIT Family Medicine; ATTEND Family Medicine
DX: K43.6 Other and unspecified ventral hernia with obstruction, without gangrene (principal); Z68.43 Body mass index [BMI] 50.0-59.9, adult; N39.0 Urinary tract infection, site not specified; I10 Essential (primary) hypertension; E11.9 Type 2 diabetes mellitus without complications; E03.9 Hypothyroidism, unspecified; E87.6 Hypokalemia; K59.09 Other constipation; F32.9 Major depressive disorder, single episode, unspecified; F41.8 Other specified anxiety disorders; E66.01 Morbid (severe) obesity due to excess calories; Z79.84 Long term (current) use of oral hypoglycemic drugs; Z79.899 Other long term (current) drug therapy
CPT/HCPCS: 36415; 71010; 74020; 74177; 80048; 80053; 81001; 82962; 83690; 83735; 85025; 87040; 94799; 99285; G0378; J0295; J0696; J3480; J3490; J7030; S0119